=== PATIENT | male | born 1950 | race African-American/Black ===

== ENCOUNTER 2016-09-16 07:40 | Day surgery (SDC) | payer MEDICARE, OTHER ==
--- NOTE | ~2016-09-16 | EGD ---
EGD REPORT [facility] [address] [address] NAME: ZACHARY RITCHIE : [birth year] STATUS : REG [facility]#: [id number] AGE: 65 ADM/REG DATE : 09/16/16 MR#: [id number] REPORT SERV DATE: 09/16/16 DICTATED BY: ZACHARY BROWNE DATE: 09/16/16 REPORT STATUS : Draft TRANSCRIBED BY: [employer] DATE: 09/16/16 Endoscopy Center Patient Name: Zachary Ritchie Date of : 1950 Attending MD: ZACHARY BROWNE MD Procedure Date No Time: 09/16/2016 Procedure: Colonoscopy Indications: Screening for colorectal malignant neoplasm Referring MD: SAVAGE RESTREPO II Medicines: Monitored Anesthesia Care Complications: No immediate complications. Procedure: Pre-Anesthesia Assessment: - ASA Grade Assessment: III - A patient with severe systemic disease. After I obtained informed consent, the scope was passed under direct vision. Throughout the procedure, the patient's blood pressure, pulse, and oxygen saturations were monitored continuously. The CF [id number] was introduced through the anus and advanced to the cecum, identified by appendiceal orifice and ileocecal valve. The colonoscopy was performed without difficulty. The patient tolerated the procedure well. The quality of the bowel preparation was adequate. Total time for colonoscopy was 38 minutes. Findings: The digital rectal exam was normal. Pertinent negatives include no palpable rectal lesions. Hemorrhoids were found during retroflexion and were moderate. A sessile polyp was found in the transverse colon. The polyp was 8 mm in size. The polyp was removed with a cold snare. Resection and retrieval were complete. Three sessile polyps were found in the transverse colon. The polyps were 3 to 6 mm in size. These polyps were removed with a cold biopsy forceps. Resection and retrieval were complete. A sessile polyp was found in the ascending colon. The polyp was 5 mm in size. The polyp was removed with a cold biopsy forceps. Resection and retrieval were complete. Four sessile polyps were found in the descending colon. The polyps were 4 to 7 mm in size. These polyps were removed with a cold snare. Resection and retrieval were complete. Seven sessile polyps were found in the sigmoid colon. The polyps were 4 to 7 mm in size. These polyps were removed with a cold biopsy forceps. Resection and retrieval were complete. Six sessile polyps were found in the rectum. The polyps were 4 to 6 mm EGD REPORT [place] [id number] [facility] [place]. [address] NAME: ZACHARY RITHCIE : [birth year] [place] [facility] [place] [id number] AGE: 65 ADM/REG DATE : 09/16/16 MR#: [id number] REPORT SERV DATE: 09/16/16 DICTATED BY: ZACHARY BROWNE DATE: 09/16/16 REPORT STATUS : Draft [facility]ANSCRIBED BY: [facility] DATE: 09/16/16 in size. These polyps were removed with a jumbo cold forceps. Resection and retrieval were complete. A sessile polyp was found in the descending colon. The polyp was 7 mm in size. The polyp was removed with a cold snare. Resection was complete, but the polyp tissue was not retrieved. Four sessile polyps were found in the sigmoid colon. The polyps were 4 to 6 mm in size. These polyps were removed with a cold snare. Resection was complete, but the polyp tissue was not retrieved. THERE WERE MULTIPLE POLYPS THAT WERE NOT REMOVED DUE TO THE TOTAL NUMBER OF POLYPS. I THINK THESE WERE HYPERPLASTIC. Impression: - Hemorrhoids. - One 8 mm polyp in the transverse colon. Resected and retrieved. - Three 3 to 6 mm polyps in the transverse colon. Resected and retrieved. - One 5 mm polyp in the ascending colon. Resected and retrieved. - Four 4 to 7 mm polyps in the descending colon. Resected and retrieved. - Seven 4 to 7 mm polyps in the sigmoid colon. Resected and retrieved. - Six 4 to 6 mm polyps in the rectum. Resected and retrieved. - One 7 mm polyp in the descending colon. Complete resection. Polyp tissue not retrieved. - Four 4 to 6 mm polyps in the sigmoid colon. Complete resection. Polyp tissue not retrieved. Recommendation: - Patient has a contact number available for emergencies. The signs and symptoms of potential delayed complications were discussed with the patient. Return to normal activities tomorrow. Written discharge instructions were provided to the patient. - Regular diet. - Continue present medications. - Repeat colonoscopy in 1 year for surveillance based on pathology results. - Return to GI clinic PRN. Procedure Code(s): --- Professional --- 05704, Colonoscopy, flexible, proximal to splenic flexure; with removal of tumor(s), polyp(s), or other lesion(s) by snare technique 68366, 59, Colonoscopy, flexible, proximal to splenic flexure; with biopsy, single or multiple EGD REPORT [address] [place]. [address] NAME: ZACHARY RITCHIE : [birth year] STATUS : [facility] PAT#: [id number] AGE: 65 ADM/REG DATE : 09/16/16 MR#: [id number] REPORT SERV DATE: 09/16/16 DICTATED BY: ZACHARY BROWNE DATE: 09/16/16 REPORT STATUS : Draft TRANSCRIBED BY: [employer] DATE: 09/16/16 Diagnosis Code(s): --- Professional --- K64.9, Unspecified hemorrhoids K62.1, Rectal polyp D12.5, Benign neoplasm of sigmoid colon D12.4, Benign neoplasm of descending colon D12.2, Benign neoplasm of ascending colon D12.3, Benign neoplasm of transverse colon Z12.11, Encounter for screening for malignant neoplasm of colon CPT copyright 2013 [employer]. All rights reserved. The codes documented in this report are preliminary and upon sheet fed printer review may be revised to meet current compliance requirements. ZACHARY BROWNE MD 09/16/2016 10:30 AM This report has been signed electronically. Number of Addenda: 0 Note Initiated On: 09/16/2016 9:22 AM Scope Withdrawal Time 0 hours 23 minutes 18 seconds [address] [address]
--- NOTE | ~2016-09-16 | EGD ---
EGD REPORT [facility] [address] [address] NAME: ZACHARY RITCHIE : [birth year] STATUS : REG [facility]#: [id number] AGE: 65 ADM/REG DATE : 09/16/16 MR#: [id number] REPORT SERV DATE: 09/16/16 DICTATED BY: ZACHARY BROWNE DATE: 09/16/16 REPORT STATUS : Draft TRANSCRIBED BY: [employer] DATE: 09/16/16 Endoscopy Center Patient Name: Zachary Ritchie Date of : 1950 Attending MD: ZACHARY BROWNE MD Procedure Date No Time: 09/16/2016 Procedure: Upper GI endoscopy Indications: Dyspepsia Referring MD: SAVAGE RESTREPO II Medicines: Monitored Anesthesia Care Complications: No immediate complications. Procedure: Pre-Anesthesia Assessment: - ASA Grade Assessment: III - A patient with severe systemic disease. After obtaining informed consent, the endoscope was passed under direct vision. Throughout the procedure, the patient's blood pressure, pulse, and oxygen saturations were monitored continuously. The GIF [id number] was introduced through the mouth, and advanced to the second part of duodenum. The upper GI endoscopy was accomplished without difficulty. The patient tolerated the procedure well. Findings: The examined esophagus was normal. A small hiatus hernia was present. Patchy mildly erythematous mucosa without bleeding was found in the gastric antrum. Biopsies were taken with a cold forceps for histology. The cardia and gastric fundus were normal on retroflexion. The duodenal bulb and 2nd part of the duodenum were normal. Impression: - Normal esophagus. - Hiatus hernia. - Erythematous mucosa in the antrum. Biopsied. - Normal duodenal bulb and 2nd part of the duodenum. Recommendation: - Patient has a contact number available for emergencies. The signs and symptoms of potential delayed complications were discussed with the patient. Return to normal activities tomorrow. Written discharge instructions were provided to the patient. - Await pathology results. - Follow an antireflux regimen. Procedure Code(s): --- Professional --- EGD REPORT [facility] [address] [place]. [address] NAME: ZACHARY RITCHIE ORAL : [birth year] STATUS : REG [facility] [place] PAT#: [id number] AGE: 65 ADM/REG DATE : 09/16/16 MR#: [id number] REPORT SERV DATE: 09/16/16 DICTATED BY: ZACHARY BROWNE DATE: 09/16/16 REPORT STATUS : Draft TRANSCRIBED BY: [email or web address] DATE: 09/16/16 57010, Esophagogastroduodenoscopy, flexible, transoral; with biopsy, single or multiple Diagnosis Code(s): --- Professional --- K44.9, Diaphragmatic hernia without obstruction or gangrene K31.9, Disease of stomach and duodenum, unspecified K30, Functional dyspepsia CPT copyright 2013 [employer]. All rights reserved. The codes documented in this report are preliminary and upon bobbin marker review may be revised to meet current compliance requirements. ZACHARY BROWNE MD 09/16/2016 9:38 AM This report has been signed electronically. Number of Addenda: 0 Note Initiated On: 09/16/2016 9:32 AM Scope Withdrawal Time 0 hours 0 minutes 0 seconds [address] [place] [address]
[~2016-09-16 07:40] MED LIST: ASAB PO; BENICAR40 PO; EYE OPH; FLONASE NAS; HYGROTON 25 MG25 MG PO; INSPRA50 MG PO; LIPITOR40 PO; PRILOSEC40 MG PO; SINGULAIR1 PO; TOPXL50 PO; VITAMIN D31000 UNIT PO
== END 2016-09-16 23:59 | disposition home or self-care (01) ==
LOC: DMU 07:40
PROVIDERS: Internal Medicine Gastroenterology
PROC: 0DBP8ZZ Excision of Rectum, Via Natural or Artificial Opening Endoscopic (ICD-10-PCS; 2016-09-16)
PROC: 0DB68ZX Excision of Stomach, Via Natural or Artificial Opening Endoscopic, Diagnostic (ICD-10-PCS; 2016-09-16)
PROC: 0DBL8ZZ Excision of Transverse Colon, Via Natural or Artificial Opening Endoscopic (ICD-10-PCS; principal; 2016-09-16 09:00)
PROC: 0DBN8ZZ Excision of Sigmoid Colon, Via Natural or Artificial Opening Endoscopic (ICD-10-PCS; 2016-09-16 09:00)
PROC: 0DBM8ZZ Excision of Descending Colon, Via Natural or Artificial Opening Endoscopic (ICD-10-PCS; 2016-09-16 09:00)
DX: Z12.11 Encounter for screening for malignant neoplasm of colon (principal); D12.3 Benign neoplasm of transverse colon; D12.2 Benign neoplasm of ascending colon; K63.5 Polyp of colon; K62.1 Rectal polyp; K64.9 Unspecified hemorrhoids; K31.9 Disease of stomach and duodenum, unspecified; K30 Functional dyspepsia; K44.9 Diaphragmatic hernia without obstruction or gangrene; I10 Essential (primary) hypertension; G47.33 Obstructive sleep apnea (adult) (pediatric); F17.200 Nicotine dependence, unspecified, uncomplicated; Z79.82 Long term (current) use of aspirin; Z79.899 Other long term (current) drug therapy
CPT/HCPCS: 88305